=== PATIENT | male | born 1975 ===

== ENCOUNTER 2022-04-28 06:41 | Day surgery (SDC) | payer OTHER ==
[~2022-04-28] VITALS: Ht 177.8 cm; Wt 68.0 kg
[2022-04-28] MEDS ORDERED: TORADOL PO (08:26)
[2022-04-28] MEDS ORDERED: TRAMADOL HCL50 MG PO (08:27)
[2022-04-28 11:08] VITALS: BP 138/93
== END 2022-04-28 10:45 | DRG 352 ==
LOC: ORM 06:41
PROVIDERS: ATTEND Surgery
PROC: 0YU50JZ Supplement Right Inguinal Region with Synthetic Substitute, Open Approach (ICD-10-PCS; principal; 2022-04-28)
DX: K40.90 Unilateral inguinal hernia, without obstruction or gangrene, not specified as recurrent (principal)
CPT/HCPCS: C9290; J0131; J1100